=== PATIENT | male | born 1955 | race Caucasian/White ===

== ENCOUNTER 2021-08-29 08:01 | Outpatient (CLI) | payer MEDICARE | END 2021-08-29 08:02 | disposition home or self-care (01) | LOC: CSHCT 08:01 | PROVIDERS: ATTEND Family Medicine | DX: Z12.2 Encounter for screening for malignant neoplasm of respiratory organs (principal); F17.210 Nicotine dependence, cigarettes, uncomplicated; E27.8 Other specified disorders of adrenal gland | CPT/HCPCS: 71271 ==

== ENCOUNTER 2021-09-05 08:09 | Outpatient (CLI) | payer MEDICARE | END 2021-09-05 08:10 | disposition home or self-care (01) | LOC: CSHCT 08:09 | PROVIDERS: ATTEND Family Medicine | DX: R93.89 Abnormal findings on diagnostic imaging of other specified body structures (principal); D35.02 Benign neoplasm of left adrenal gland; N20.1 Calculus of ureter | CPT/HCPCS: 74170; 82565 ==